=== PATIENT | female | born 1975 | race Asian ===

== ENCOUNTER 2018-11-05 16:30 | Emergency (ER) | payer OTHER ==
[2018-11-05] MEDS ORDERED: SODIUM CHLORIDE 0.9% 1,000 ML IV ONE (17:04)
[2018-11-05] MEDS ORDERED: ONDANSETRON 4 MG/2 ML VIAL IVP STA (17:04)
[2018-11-05] MEDS ORDERED: MECLIZINE 12.5 MG TABLET PO STA (17:04)
--- NOTE | 2018-11-05 17:06 | ED Physician Documentation ---
PD HPI FOCAL NEURO - Stated complaint Stated Complaint: DIZZY/VOM - Chief complaint Chief Complaint: Neuro - History obtained from History obtained from: Patient, Family () - History of Present Illness Timing - onset: Today (43-year-old woman with history of vertigo suddenly developed room spinning while standing up about an hour ago. There is no associated headache or weakness, numbness, or tingling. She has severe nausea and has vomited several times. This is similar prior vertigo but this is much worse. She denies any tinnitus or ear pain or fullness. No sinus symptoms.) Review of Systems Ten Systems: 10 systems reviewed and negative Constitutional: denies: Fever, Chills Ears: denies: Loss of hearing, Ear pain, Drainage/discharge Nose: denies: Rhinorrhea / runny nose, Congestion Throat: denies: Sore throat Cardiac: denies: Chest pain / pressure Respiratory: denies: Dyspnea PD PAST MEDICAL HISTORY - Past Medical History Cardiovascular: Hypertension Endocrine/Autoimmune: HyPOthyroidism - Past Surgical History Past Surgical History: No - Present Medications Home Medications: Ambulatory Orders Medication Instructions Recorded Confirmed Atenolol 50 mg PO DAILY 05/11/14 11/05/18 Levothyroxine [Synthroid] 50 mcg PO QDAC 05/11/14 11/05/18 Meclizine HCl 25 mg PO Q6H PRN #20 tab.chew 11/05/18 Ondansetron Odt [Zofran] 4 mg TL Q6H PRN #10 tablet 11/05/18 - Allergies Allergies/Adverse Reactions: Allergies Allergy/AdvReac Type Severity Reaction Status Date / Time Sulfa (Sulfonamide Allergy Rash Verified 11/05/18 16:40 Antibiotics) - Social History Does the pt smoke?: No Smoking Status: Never smoker Does the pt drink ETOH?: No Does the pt have substance abuse?: No PD ED PE NORMAL - Vitals Vital signs reviewed: Yes - General General: Alert and oriented X 3, Other (She is uncomfortable laying with her left ear down) - HEENT HEENT: PERRL, EOMI (With nystagmus on leftward gaze), Pharynx benign - Neck Neck: Supple, no meningeal sign, No bony TTP - Cardiac Cardiac: RRR, No murmur - Respiratory Respiratory: No respiratory distress, Clear bilaterally - Abdomen Abdomen: Non tender - Extremities Extremities: No deformity, No tenderness to palpate, No edema, No calf tenderness / cord - Neuro Neuro: Alert and oriented X 3, keno terminal operator 2-12 intact, Normal speech Eye Opening: Spontaneous Motor: Obeys Commands Verbal: Oriented GCS Score: 15 Results - Vitals Vitals: Vital Signs - 24 hr 11/05/18 11/05/18 16:36 18:07 Temperature 36.0 C L 36.7 C Heart Rate 74 66 Respiratory 20 16 Rate Blood Pressure 134/74 H 124/73 O2 Saturation 99 98 Oxygen O2 Source Room air PD MEDICAL DECISION MAKING - ED course ED course: 43-year-old woman with acute peripheral vertigo. Very positive Juan-Hallpike test. She was too symptomatic at the outset to trial an Anne maneuver and after meclizine and Zofran we were able to get through the Anne maneuver but it was not curative. However after a dose of Ativan she was functional and able to ambulate. Departure - Departure Disposition: 01 Home, Self Care Clinical Impression: Vertigo Condition: Good Record reviewed to determine appropriate education?: Yes Health Concerns: vertigo, nausea Plan of Treatment: symptom control, no clinical evidence of central cause. Care Goals: symptom control Assessment: as above Instructions: ED BPV Vertigo Prescriptions: Meclizine HCl 25 mg PO Q6H PRN #20 tab.chew PRN Reason: Dizziness Ondansetron Odt [Zofran] 4 mg TL Q6H PRN #10 tablet PRN Reason: Nausea / Vomiting Comments: [place] return for new or worsening symptoms. Do not drive today nor while taking the prescription vertigo medication as it will make you sleepy. Forms: Activity restrictions
[2018-11-05] MEDS ORDERED: LORazepam 2 MG/ML VIAL IVP STA (17:49)
[2018-11-05 19:00] VITALS: BP 108/75
== END 2018-11-05 18:58 | disposition home or self-care (01) ==
LOC: ED 16:30
DX: H81.399 Other peripheral vertigo, unspecified ear (principal); R11.2 Nausea with vomiting, unspecified; I10 Essential (primary) hypertension
CPT/HCPCS: 96374; 96375; 99283; 99284; A9270; J2060

== ENCOUNTER 2022-01-24 10:27 | Emergency (ER) | payer OTHER ==
--- NOTE | 2022-01-24 11:27 | ED Physician Documentation ---
PD HPI HEENT - Stated complaint Stated Complaint: NAUSEA/VOMITTING/CHILLS - Chief complaint Chief Complaint: Neuro - History obtained from History obtained from: Patient - History of Present Illness Timing - onset: Today, How many days ago (has had some positional vertigo with getting up and head moving for 3 days but more severe when got up from lying this morning. Having nausea and vomiting with the vertigo. Improved with holding still and lying. No focal deficits otherwise.) Timing - details: Abrupt onset, Still present Location: Other (not havign ear pain, sore throat nor URI symptoms except some nasal congestion for few days.) Improves: Other (lying and head still.) Worsens: Other (head movement and being upright) Associated symptoms: Congestion. No: Fever, Swollen nodes, Cough Similar symptoms before: No diagnosis (has had episodic vertigo in the past without obvious cause.) Recently seen: Not recently seen Review of Systems Constitutional: denies: Fever, Chills Eyes: denies: Loss of vision, Photophobia Ears: denies: Ear pain, Drainage/discharge, Tinnitus/ringing Nose: denies: Rhinorrhea / runny nose, Congestion Throat: denies: Sore throat Respiratory: denies: Cough Skin: denies: Rash Neurologic: denies: Focal weakness, Numbness, Altered mental status, Headache PD PAST MEDICAL HISTORY - Past Medical History Past Medical History: Yes Cardiovascular: Hypertension Respiratory: None Neuro: Other Endocrine/Autoimmune: HyPOthyroidism GI: None WRIST CLOSER: None : None HEENT: None Psych: None Musculoskeletal: None Derm: None Other Past Medical History: vertigo - Past Surgical History Past Surgical History: No - Present Medications Home Medications: Ambulatory Orders Medication Instructions Recorded Confirmed Atenolol 25 mg PO DAILY 05/11/14 01/24/22 Levothyroxine [Synthroid] 75 mcg PO QDAC 01/24/22 01/24/22 Lisinopril [Zestril] 10 mg PO DAILY 01/24/22 01/24/22 Meclizine HCl [Motion Sickness] 25 mg PO Q6H PRN #30 tablet 01/24/22 dexAMETHasone [Decadron] 4 mg PO DAILY #5 tablet 01/24/22 diazePAM [Valium] 5 mg PO BID PRN #15 tablet 01/24/22 - Allergies Allergies/Adverse Reactions: Allergies Allergy/AdvReac Type Severity Reaction Status Date / Time Sulfa (Sulfonamide Allergy Rash Verified 01/24/22 10:39 Antibiotics) - Social History Does the pt smoke?: No Smoking Status: Never smoker Does the pt drink ETOH?: No Does the pt have substance abuse?: No - Immunizations Immunizations are current?: Yes PD ED PE NORMAL - Vitals Vital signs reviewed: Yes - General General: Alert and oriented X 3, Well developed/nourished, Other (holding head very still, lying supine. holding emesis bag. ) - HEENT HEENT: PERRL, EOMI (with nystagmus noted fast component to the right. ), Ears normal, Pharynx benign - Neck Neck: Supple, no meningeal sign, No adenopathy - Cardiac Cardiac: RRR, No murmur - Respiratory Respiratory: Clear bilaterally - Abdomen Abdomen: Soft, Non distended, Other (mild tender epigastric area without guarding nor percussion tenderness. ) - Derm Derm: Normal color, Warm and dry - Extremities Extremities: No tenderness to palpate, Normal ROM s pain, No edema, No calf tenderness / cord - Neuro Neuro: Alert and oriented X 3, No motor deficit, No sensory deficit, Normal speech Results - Vitals Vitals: Vital Signs - 24 hr 01/24/22 01/24/22 01/24/22 10:38 11:22 12:12 Temperature 36.1 C L Heart Rate 79 76 78 Respiratory 16 16 16 Rate Blood Pressure 132/73 H 146/94 H 136/84 H O2 Saturation 100 96 98 01/24/22 14:09 Temperature 36.4 C L Heart Rate 86 Respiratory 16 Rate Blood Pressure 152/96 H O2 Saturation 100 Oxygen O2 Source Room air - Labs Labs: Laboratory Tests 01/24/22 01/24/22 11:55 11:55 Sodium 139 Potassium 3.9 Chloride 105 Carbon Dioxide 25 Anion Gap 9.0 BUN 12 Creatinine 0.5 Estimated GFR (MDRD) 133 Glucose 105 H Calcium 9.4 Magnesium 2.2 Total Bilirubin 0.8 AST 33 ALT 44 Alkaline Phosphatase 57 Total Protein 8.0 Albumin 4.2 Globulin 3.8 Albumin/Globulin Ratio 1.1 Lipase 37 TSH 1.42 PD MEDICAL DECISION MAKING - ED course Complexity details: re-evaluated patient (improved with IV fluids, diazepam and meclizine, steroids. ), considered differential (seems like positional vertigo but has had it 3 days and now worse, so consider congestion/viral cause/ inflammation now as well. ), d/w patient Departure - Departure Disposition: 01 Home, Self Care Clinical Impression: Vertigo, Acute labyrinthitis Condition: Stable Record reviewed to determine appropriate education?: Yes Instructions: ED Labyrinthitis Follow-Up: [facility] [Provider Group] [facility] [place] [Provider Group] Prescriptions: dexAMETHasone [Decadron] 4 mg PO DAILY #5 tablet Meclizine HCl [Motion Sickness] 25 mg PO Q6H PRN #30 tablet PRN Reason: Vertigo diazePAM [Valium] 5 mg PO BID PRN #15 tablet PRN Reason: Vertigo Comments: Get up and move around slowly to less precipitate the vertigo. It sounds like an inner ear dysfunction and can relate to either a mild infection or fluid buildup. I would treat it with some anti-inflammatory daily for the next several days. Add meclizine every 6-8 hours if needed for vertigo/dizziness. To that you can add diazepam twice daily if needed for worse vertigo not responding to the initial medicines. I would anticipate improvement over the next 2 to 3 days and be resolved during that time. Follow-up with your primary care if not improved well and return to the ER as needed. You could also follow-up with an stitching machine feeder or offbearer to see if there is any other considerations for the cause. I sent your prescriptions to [facility] in [place]. Discharge Date/Time: 01/24/22 14:50
[2022-01-24] MEDS ORDERED: SODIUM CHLORIDE 0.9% 1,000 ML IV STA (11:42)
[2022-01-24] MEDS ORDERED: MECLIZINE 12.5 MG TABLET PO STA (11:43)
[2022-01-24] MEDS ORDERED: diazePAM INJ 5 MG/ML SYRINGE IVP STA (11:43)
[2022-01-24] MEDS ORDERED: DEXAMETHASONE 10 MG/ML VIAL IVP STA (11:43)
[2022-01-24] MEDS ORDERED: ONDANSETRON 4 MG/2 ML VIAL IVP STA (11:43)
[2022-01-24 12:55] LABS: ALBUMIN 4.2 g/dL (3.2-5.5); ALBUMIN/GLOBULIN RATIO 1.1 (1.0-2.2); BILIRUBIN,TOTAL 0.8 mg/dL (0.2-1.0); CALCIUM 9.4 mg/dL (8.5-10.3); CREATININE 0.5 mg/dL (0.4-1.0); MAGNESIUM 2.2 mg/dL (1.7-2.8); POTASSIUM 3.9 mmol/L (3.5-5.0)
[2022-01-24 14:10] VITALS: BP 152/96
== END 2022-01-24 14:50 | disposition home or self-care (01) ==
LOC: ED 10:27
DX: H83.09 Labyrinthitis, unspecified ear (principal)
CPT/HCPCS: 36415; 80053; 83690; 83735; 84443; 96374; 96375; 99283; 99284; A9270